=== PATIENT | female | born 1945 | race Two or more races ===

== ENCOUNTER 2018-12-16 10:08 | Outpatient (CLI) | payer OTHER | END 2018-12-16 12:07 | disposition home or self-care (01) | LOC: SONOGRAMA 10:08 | DX: M19.042 Primary osteoarthritis, left hand (principal); M19.041 Primary osteoarthritis, right hand ==

== ENCOUNTER 2018-12-24 10:14 | Outpatient (CLI) | payer OTHER | END 2018-12-24 10:16 | disposition home or self-care (01) | LOC: NUCLEAR 10:14 | DX: M81.0 Age-related osteoporosis without current pathological fracture (principal) ==